=== PATIENT | female | born 1935 | race Caucasian/White ===

== ENCOUNTER 2018-07-07 12:24 | Emergency (ER) | payer BC ==
[~2018-07-07] VITALS: Ht 160 cm; Wt 100.2 kg
--- NOTE | 2018-07-07 13:03 | NUR ---
Pt assessed, reports she was sent here from [place] for low H/H. Pt denies weakness or lightheadedness. Pt reports "dark stools". Pt reports hx transfusions in the past but unsure of why. Pt reports SOB with exertion, hx COPD. Pt reports "burning in my chest when I am walking." Pt also reports hx UTI with abx use over past month, no longer on abx but still has frequency. NAD at this time. Pt steady, ambulatory. Will cont to monitor
[2018-07-07] MEDS ORDERED: GLYB-135 PO (13:10)
[2018-07-07] MEDS ORDERED: LISI1TAB7 PO (13:11)
[2018-07-07] MEDS ORDERED: METO-95 PO (13:12)
[2018-07-07] MEDS ORDERED: NIFE30TA15 PO (13:12)
[2018-07-07] MEDS ORDERED: TIOT18CA INH (13:13)
[2018-07-07] MEDS ORDERED: SIMV40TA3 PO (13:13)
[2018-07-07] MEDS ORDERED: SODIUM CHLORIDE FLUSH 10ML SYR IVF ONE (13:30)
[2018-07-07 13:41] LABS: MEAN CORPUSCULAR HEMOGLOBIN 18.9 pg (27.0-34.8); MEAN CORPUSCULAR VOLUME 63.2 fL (80-100); MEAN PLATELET VOLUME 7.5 fL (7.4-10.4); PLATELET COUNT 263 x10^3/uL (130-400); RED BLOOD COUNT 3.58 x10^6/uL (3.82-5.3); RED CELL DISTRIBUTION WIDTH 18.5 % (9.6-15.2)
[2018-07-07 13:44] LABS: MEAN CORPUSCULAR HGB CONC 29.8 g/dL (32.4-35.8)
[2018-07-07 13:50] LABS: ANION GAP 7 mmol/L (5-15); CALCIUM 8.8 mg/dL (8.5-10.1); CHLORIDE 108 mmol/L (98-107); CREATININE 1.03 mg/dL (0.55-1.02); INTERNATIONAL NORMALIZED RATIO 1.1 (0.93-1.1); PROTHROMBIN TIME 11.5 Seconds (9.6-11.5)
[2018-07-07 13:51] LABS: ALBUMIN 3.7 g/dL (3.4-5.0)
[2018-07-07 13:59] LABS: BASOPHILS # (AUTO) 0.03 x10^3/uL (0-0.1); BASOPHILS % (AUTO) 0 % (0-1); EOSINOPHILS # (AUTO) 0.08 x10^3/uL (0-0.4); EOSINOPHILS % (AUTO) 1 % (1-7); LYMPHOCYTES # (AUTO) 1.86 x10^3/uL (1-3.4); LYMPHOCYTES % (AUTO) 24 % (22-44); MD SCAN; MONOCYTES # (AUTO) 0.58 x10^3/uL (0.2-0.8); MONOCYTES % (AUTO) 7 % (2-9); NEUTROPHILS % (AUTO) 67 % (42-75)
[2018-07-07 13:59] LABS: MICROSCOPIC AUTO
--- NOTE | 2018-07-07 14:01 | NUR ---
Report from Dalton ENGLE. Rounded on pt. No needs at this time. Will cont to monitor
[2018-07-07 14:05] LABS: CULTURE INDICATED? YES
[2018-07-07 15:19] VITALS: BP 126/50
--- NOTE | 2018-07-07 15:23 | NUR ---
Blood transfusion started, consent signed and on chart. RN at BS for first 15 minutes
[2018-07-07 15:34] VITALS: BP 135/54
--- NOTE | 2018-07-07 15:34 | NUR ---
Pt tolerating transfusion well. Will cont to monitor
[2018-07-07 16:00] VITALS: BP 146/59
[2018-07-07 16:29] VITALS: BP 130/53
[2018-07-07 17:02] VITALS: BP 127/62
== END 2018-07-07 17:16 | disposition home or self-care (01) ==
LOC: ED 14:39
DX: D63.8 Anemia in other chronic diseases classified elsewhere (principal); R06.00 Dyspnea, unspecified; R42 Dizziness and giddiness
CPT/HCPCS: 36415; 36430; 80048; 81001; 82040; 85025; 85610; 85730; 86850; 86900; 86923; 87086; 99285; P9016

== ENCOUNTER 2018-10-06 10:21 | Emergency (ER) | payer BC ==
[~2018-10-06] VITALS: Ht 160 cm; Wt 101.0 kg
[2018-10-06] VITALS (8 sets, daily range): BP systolic 129–157; BP diastolic 39–67
[~2018-10-06 10:21] MED LIST: GLYB-135 PO; LISI1TAB20 PO; METO-95 PO; NIFE30TA15 PO; SIMV40TA3 PO; TIOT18CA INH
--- NOTE | 2018-10-06 11:03 | NUR ---
PT AMBULATORY TO ROOM 4 W/ C/O SOB AND STATES SHE HAS BEEN FEELING MORE TIRED THAN NORMAL. STATES SHE GETS THESE SX WHENEVER HER HGB DROPPED. HAD POC HGB DRAW THIS AM AND WAS SHOWN TO BE 7.0. STATES SHE USUALLY GETS 2 UNITS OF PRBC Q6 MONTHS BUT 3 MONTHS AGO ONLY RECEIVED 1 UNIT 3 MONTHS AGO. PT RESTING ON GURNEY. NADN. MONITORS APPLIED. EDPA BIRDIE AT BEDSIDE.PT AOX4. REFUSING INVASIVE PROCEDURES.
--- NOTE | 2018-10-06 11:47 | NUR ---
PT RESTING ON GURNEY. NADN. KANG.
[2018-10-06 11:55] LABS: ALBUMIN 3.7 g/dL (3.4-5.0); ANION GAP 8 mmol/L (5-15); CALCIUM 8.9 mg/dL (8.5-10.1); CHLORIDE 107 mmol/L (98-107)
[2018-10-06 12:00] LABS: ALANINE AMINOTRANSFERASE 32 U/L (12-78); ALKALINE PHOSPHATASE 266 U/L (45-117); BILIRUBIN,TOTAL 0.4 mg/dL (0.2-1.0); CREATININE 1.16 mg/dL (0.55-1.02); TOTAL PROTEIN 7.9 g/dL (6.4-8.2); TROPONIN I < 0.015 ng/mL (0.000-0.045)
[2018-10-06 12:25] LABS: MD YES
[2018-10-06 12:43] LABS: MEAN CORPUSCULAR HEMOGLOBIN 19.7 pg (27.0-34.8); MEAN CORPUSCULAR VOLUME 66.2 fL (80-100); MEAN PLATELET VOLUME 8.2 fL (7.4-10.4); PLATELET COUNT 301 x10^3/uL (130-400); RED BLOOD COUNT 3.77 x10^6/uL (3.82-5.3); RED CELL DISTRIBUTION WIDTH 19.5 % (9.6-15.2)
--- NOTE | 2018-10-06 12:47 | NUR ---
REPORT TO ONIEL MELÉNDEZ.
[2018-10-06 12:54] LABS: MEAN CORPUSCULAR HGB CONC 29.8 g/dL (32.4-35.8)
[2018-10-06 12:57] LABS: BASOS#(MANUAL) 0.08 x10^3/uL (0-0.1); BASOS% (MANUAL) 1 % (0-1); EOS#(MANUAL) 0.16 x10^3/uL (0.0-0.4); EOS% (MANUAL) 2 % (1-7); LYMPH#(MANUAL) 1.62 x10^3/uL (1-3.4); LYMPHS% (MANUAL) 20 % (22-44); MONOS#(MANUAL) 0.57 x10^3/uL (0.3-2.7); MONOS% (MANUAL) 7 % (2-9); SEG#(MANUAL) 5.67 x10^3/uL (1.8-6.8); SEGS% (MANUAL) 70 % (42-75)
[2018-10-06 12:58] LABS: <PLATELET ESTIMATE> ADEQUATE; <PLT MORPHOLOGY> NORMAL PLT MORPH; ANISOCYTOSIS 1+; HYPOCHROMIA 1+; MICROCYTOSIS 2+; OVALOCYTES 1+
--- NOTE | 2018-10-06 14:45 | NUR ---
FIRST UNIT OF PRBCs STARTED. EDUCATED PATIENT ON S/S OF TRANSFUSION REACTION AND TO CALL IF SHE HAS ANY OF THEM. PT AGREES. WILL CONTINUE TO MONITOR.
--- NOTE | 2018-10-06 15:10 | NUR ---
PATIENT TOLERATING BLOOD TRANSFUSION WELL. VS UPDATED AND WNL. DENIES S/S OF A REACTION.
--- NOTE | 2018-10-06 15:42 | NUR ---
PT CONTINUES TO TOLERATE TRANSFUSION WELL. INCREASING RATE.
--- NOTE | 2018-10-06 16:48 | NUR ---
SECOND UNIT OF BLOOD STARTED. CORY MORFIN AT BEDSIDE. ADA DIET TRAY ORDERED.
--- NOTE | 2018-10-06 17:09 | NUR ---
PT TOLERATING SECOND UNIT OF BLOOD WELL. INCREASING INFUSION RATE. SON AT BEDSIDE.
--- NOTE | 2018-10-06 17:46 | NUR ---
SECOND UNIT OF PRBCs COMPLETE. PT TOLERATED WELL. VS UPDATED AND WNL. NO S/S TRANSFUSION REACTION. DINNER TRAY SERVED TO PATIENT.
--- NOTE | 2018-10-06 18:33 | NUR ---
UA COLLETED AND SENT TO LAB.
[2018-10-06 18:51] LABS: MICROSCOPIC AUTO
--- NOTE | 2018-10-06 18:52 | NUR ---
RECEIVED REPORT FROM ONIEL MELÉNDEZ AND ASSUMED PT CARE.
[2018-10-06 18:55] LABS: CULTURE INDICATED? YES
--- NOTE | 2018-10-06 19:06 | NUR ---
SBAR BEDSIDE HAND-OFF REPORT GIVEN TO ONIEL REARDON.
[2018-10-06] MEDS ORDERED: FOSFOMYCIN 3 GM PACKET PO ONE (19:30)
[2018-10-06] MEDS ORDERED: FOSFOMYCIN 3 GM PACKET ONE (19:38)
== END 2018-10-06 19:53 | disposition home or self-care (01) ==
LOC: ED 13:27
DX: D50.0 Iron deficiency anemia secondary to blood loss (chronic) (principal); N30.00 Acute cystitis without hematuria; E11.65 Type 2 diabetes mellitus with hyperglycemia
CPT/HCPCS: 36415; 36430; 71045; 80053; 81001; 83880; 84484; 85025; 86850; 86900; 86923; 87077; 87086; 87186; 93005; 99285; P9016

== ENCOUNTER 2019-02-03 17:37 | Emergency (ER) | payer MEDICARE, BC ==
[~2019-02-03] VITALS: Ht 160 cm; Wt 105.2 kg
[~2019-02-03 17:37] MED LIST changes: +ALBU90AE INH; +ALBUTEROL INHALER; +ASPI81TA45 PO; +CEPH-368 PO; +FERR324T5 PO; -GLYB-135 PO; +GLYB1TAB16 PO; +HYDR-3237 PO; +METFORMIN; +NIFE30TA13 PO; +OXYB10TA2 PO
--- NOTE | 2019-02-03 17:53 | NUR ---
THIS IS A 83 YO F BIB [facility] FROM [facility]. SHE WAS DC TODAY FROM THIS FACILITY AFTER A LEFT HIP FX BUT FEELS SHE IS NOT READY FOR REHAB. SHE STATES "I FEEL SAFE HERE". RESPIRATIONS ARE EVEN AND UNLABORED. PATIENT IS IN NO ACUTE DISTRESS. VS STABLE. CALL LIGHT IN REACH. WILL CONTINUE TO MONITOR.
--- NOTE | 2019-02-03 18:36 | NUR ---
SOCIAL WORK IN ROOM.
--- NOTE | 2019-02-03 18:55 | NUR ---
REPORT FROM STEPHANIE ENGLE
--- NOTE | 2019-02-03 19:31 | NUR ---
SOCIAL WORK AT BEDSIDE
[2019-02-03 19:32] VITALS: BP 130/52
--- NOTE | 2019-02-03 20:37 | NUR ---
REPORT CALLED TO [facility]EL[facility] AT [facility]
== END 2019-02-03 20:52 | disposition short-term general hospital (02) ==
LOC: ED 19:26
DX: F41.1 Generalized anxiety disorder (principal); I10 Essential (primary) hypertension; E11.65 Type 2 diabetes mellitus with hyperglycemia; J44.9 Chronic obstructive pulmonary disease, unspecified; Z87.891 Personal history of nicotine dependence
CPT/HCPCS: 99285

== ENCOUNTER 2019-02-06 12:02 | Inpatient (IN) | payer MEDICARE, BC ==
[~2019-02-06] VITALS: Ht 160 cm; Wt 109.2 kg
--- NOTE | 2019-02-06 12:20 | NUR ---
SUNG YOU FROM [facility] FOR N/V. PT AT FACILITY TO REHAB FROM LT FEMUR FX. NO VOMITING NOTED IN ED. PT SPEAKING IN FULL SENTENCES, PLEASANT WITH STAFF. TALKING ABOUT PERSONAL HOME LIFE WITH SON. RESPIRATIONS EVEN AND UNLABORED ON RA. AWAITING ERMD DANIS.
[2019-02-06] MEDS ORDERED: ACET325T14 PO (12:33)
[2019-02-06] MEDS ORDERED: TUBE5VIA ID (12:33)
[2019-02-06] MEDS ORDERED: IPRA3AMP30 INH (12:33)
--- NOTE | 2019-02-06 12:33 | NUR ---
MED REC COMPLETED. PT ON BEDPAN.
[2019-02-06] MEDS ORDERED: SODIUM CHLORIDE 0.9% 1,000 ML IV ONE (12:46)
[2019-02-06] MEDS ORDERED: SODIUM CHLORIDE FLUSH 10ML SYR IVF ONE (13:00)
[2019-02-06] MEDS ORDERED: ONDANSETRON 2MG/ML, 2ML IVPush ONE (13:00)
[2019-02-06] MEDS ORDERED: ONDANSETRON 2MG/ML, 2ML ONE (13:01)
[2019-02-06 13:15] LABS: MEAN CORPUSCULAR HEMOGLOBIN 23.7 pg (27.0-34.8); MEAN CORPUSCULAR HGB CONC 31.1 g/dL (32.4-35.8); MEAN CORPUSCULAR VOLUME 76.3 fL (80-100); MEAN PLATELET VOLUME 7.6 fL (7.4-10.4); PLATELET COUNT 279 x10^3/uL (130-400); RED BLOOD COUNT 4.14 x10^6/uL (3.82-5.3); RED CELL DISTRIBUTION WIDTH 26.6 % (9.6-15.2)
[2019-02-06 13:19] LABS: ALANINE AMINOTRANSFERASE 21 U/L (12-78); ALBUMIN 2.9 g/dL (3.4-5.0); ANION GAP 10 mmol/L (5-15); CALCIUM 8.8 mg/dL (8.5-10.1); CHLORIDE 105 mmol/L (98-107)
[2019-02-06 13:24] LABS: ALKALINE PHOSPHATASE 363 U/L (45-117); BILIRUBIN,TOTAL 1.1 mg/dL (0.2-1.0); CREATININE 0.91 mg/dL (0.55-1.02); TOTAL PROTEIN 7.5 g/dL (6.4-8.2); TROPONIN I < 0.015 ng/mL (0.000-0.045)
[2019-02-06 13:38] LABS: BASOPHILS # (AUTO) 0.02 x10^3/uL (0-0.1); BASOPHILS % (AUTO) 0 % (0-1); EOSINOPHILS # (AUTO) 0.05 x10^3/uL (0-0.4); EOSINOPHILS % (AUTO) 1 % (1-7); LYMPHOCYTES # (AUTO) 0.74 x10^3/uL (1-3.4); LYMPHOCYTES % (AUTO) 8 % (22-44); MD SCAN; MONOCYTES # (AUTO) 0.45 x10^3/uL (0.2-0.8); MONOCYTES % (AUTO) 5 % (2-9); NEUTROPHILS # (AUTO) 7.92 x10^3/uL (1.8-6.8); NEUTROPHILS % (AUTO) 86 % (42-75)
--- NOTE | 2019-02-06 13:57 | NUR ---
REPORT FROM ONIEL WEBB. PT RESTING IN ROOM. VSS. NO NEEDS EXPRESSED. IVF INFUSING. PT AWARE OF UA NEED.
[2019-02-06] MEDS ORDERED: OMNIPAQUE 350 MG/ML, 100ML BOTTLE ONE (14:24)
[2019-02-06 14:42] LABS: CULTURE INDICATED? YES; MICROSCOPIC INDICATED
--- NOTE | 2019-02-06 14:58 | NUR ---
PT RESTING IN ROOM WTIH EYES CLOSED. VSS. NO NEEDS EXPRESSED. ALL RESULTS ABCK AT THIS TIME. CHART UP FOR RECHECK.
[2019-02-06] MEDS ORDERED: PANTOPRAZOLE 40 MG IV IVPush ONE (15:30)
[2019-02-06] MEDS ORDERED: PANTOPRAZOLE 40 MG IV ONE (15:39)
--- NOTE | 2019-02-06 15:44 | NUR ---
PT RESTING IN ROOM. VSS. PT MEDICATED PER MAR. NO NEEDS EXPRESSED. CALL LIGHT WITHIN REACH. PLAN TO ADMIT. AWAITING ROOM ASSINGMENT.
[2019-02-06] MEDS ORDERED: SODIUM CHLORIDE FLUSH 10ML SYR IVF PRN (16:00)
[2019-02-06] MEDS: PANTOPRAZOLE 80 MG in SODIUM CHLORIDE 0.9% 100 ML IV SCH (16:20)
--- NOTE | 2019-02-06 16:20 | NUR ---
PT MEDICATED PER MAR. VSS. NO NEEDS EXPRESSED. CALL LIGHT WITHIN REACH. AWAITING ROOM ASSIGNMENT.
[2019-02-06] MEDS ORDERED: PROMETHAZINE 25 MG/ML, 1ML IM PRN (16:30)
[2019-02-06] MEDS ORDERED: ONDANSETRON 2MG/ML, 2ML IVPush PRN (16:30)
[2019-02-06] MEDS ORDERED: ACETAMINOPHEN 325 MG TABLET PO PRN (16:30)
[2019-02-06] MEDS ORDERED: ONDANSETRON ODT 4 MG PO PRN (16:30)
[2019-02-06] MEDS ORDERED: BACLOFEN 10 MG TABLET PO PRN (16:30)
[2019-02-06] MEDS ORDERED: hydrALAzine 20 MG/ML, 1ML IVPush PRN (16:30)
--- NOTE | 2019-02-06 16:50 | NUR ---
BREAK NOTE FOR RN: PT SITTING RECLINED IN BED, NAD NOTED AT THIS TIME. RESPIRATIONS EVEN AND UNLABORED ON RA. TALKING WITH VISITOR AT BEDSIDE. SIDE RAILS UP, CALL LIGHT IN REACH.
[2019-02-06] MEDS ORDERED: DEXTROSE 50%, 50ML SYRINGE IVPush PRN (17:30)
[2019-02-06] MEDS ORDERED: GLUCAGON 1 MG IM PRN (17:30)
[2019-02-06] MEDS ORDERED: DEXTROSE 4 GM TAB.CHEW PO PRN (17:30)
--- NOTE | 2019-02-06 18:14 | NUR ---
PT RESTING IN ROOM. VSS. NO NEEDS EXPRESSED AT THIS TIME. CALL LIGHT WITHIN REACH. PT REFUSING NG TUBE AT THIS TIME. REPORT TO ONIEL GRIDER. PT READY FOT TRANSPORT.
[2019-02-06 19:47] VITALS: BP 168/76
[2019-02-06] MEDS: INSULIN LISPRO 100 UNITS/ML, PEN SQ-INSULIN SCH (19:53)
[2019-02-06] MEDS: SIMVASTATIN 40 MG TABLET PO SCH (21:00)
[2019-02-06] MEDS: ASPIRIN 81 MG TABLET EC PO SCH (21:00)
[2019-02-06] MEDS: SODIUM CHLORIDE FLUSH 10ML SYR IVF SCH (21:38)
[2019-02-06] MEDS: morphine SULFATE 10 MG/ML, 1ML IVPush PRN (21:39)
[2019-02-06] MEDS: NS + 20MEQ KCL 1,000 ML IV SCH (23:29)
[2019-02-07] MEDS: ALBUTEROL/IPRATROPIUM 2.5MG/0.5MG, 3 ML NEB SCH ×5 (00:51→20:54)
[2019-02-07 01:01] VITALS: BP 155/75
[2019-02-07] MEDS: PANTOPRAZOLE 80 MG in SODIUM CHLORIDE 0.9% 100 ML IV SCH ×2 (01:54→13:31)
[2019-02-07 05:15] LABS: MEAN CORPUSCULAR HEMOGLOBIN 24.1 pg (27.0-34.8); MEAN CORPUSCULAR HGB CONC 31.7 g/dL (32.4-35.8); MEAN CORPUSCULAR VOLUME 76.3 fL (80-100); PLATELET COUNT 240 x10^3/uL (130-400); RED CELL DISTRIBUTION WIDTH 27.5 % (9.6-15.2)
[2019-02-07 05:19] LABS: ALBUMIN 2.7 g/dL (3.4-5.0); ANION GAP 7 mmol/L (5-15); CALCIUM 8.8 mg/dL (8.5-10.1); CHLORIDE 110 mmol/L (98-107)
[2019-02-07 05:21] LABS: ALANINE AMINOTRANSFERASE 19 U/L (12-78); ALKALINE PHOSPHATASE 308 U/L (45-117); BILIRUBIN,TOTAL 0.8 mg/dL (0.2-1.0); CREATININE 0.83 mg/dL (0.55-1.02); TOTAL PROTEIN 6.9 g/dL (6.4-8.2)
[2019-02-07 05:48] LABS: BASOPHILS # (AUTO) 0.03 x10^3/uL (0-0.1); BASOPHILS % (AUTO) 0 % (0-1); EOSINOPHILS # (AUTO) 0.16 x10^3/uL (0-0.4); EOSINOPHILS % (AUTO) 2 % (1-7); LYMPHOCYTES # (AUTO) 0.96 x10^3/uL (1-3.4); LYMPHOCYTES % (AUTO) 14 % (22-44); MD SCAN; MONOCYTES # (AUTO) 0.48 x10^3/uL (0.2-0.8); MONOCYTES % (AUTO) 7 % (2-9); NEUTROPHILS # (AUTO) 5.19 x10^3/uL (1.8-6.8); NEUTROPHILS % (AUTO) 76 % (42-75)
[2019-02-07 06:35] VITALS: BP 159/72
[2019-02-07] MEDS: INSULIN LISPRO 100 UNITS/ML, PEN SQ-INSULIN SCH ×4 (07:00→20:35)
[2019-02-07] MEDS: SODIUM CHLORIDE FLUSH 10ML SYR IVF SCH ×2 (09:00→20:44)
[2019-02-07] MEDS: NS + 20MEQ KCL 1,000 ML IV SCH ×2 (11:04→20:44)
[2019-02-07] MEDS: morphine SULFATE 10 MG/ML, 1ML IVPush PRN (11:25)
[2019-02-07] MEDS: AMLODIPINE 5 MG TABLET PO SCH ×2 (13:32→20:43)
[2019-02-07] MEDS: ASPIRIN 81 MG TABLET EC PO SCH ×2 (13:32→20:45)
[2019-02-07] MEDS: METOPROLOL SUCCINATE 100 MG TAB.ER.24H PO SCH (13:32)
[2019-02-07] MEDS: niFEDipine ER 30 MG TABLET.ER PO SCH (13:32)
[2019-02-07 14:05] VITALS: BP 129/66
[2019-02-07 19:12] VITALS: BP 121/71
[2019-02-07] MEDS: SIMVASTATIN 40 MG TABLET PO SCH (20:43)
[2019-02-07] MEDS: HYDROcodone/APAP 5/325 TABLET PO PRN (21:17)
[2019-02-08] MEDS: PANTOPRAZOLE 80 MG in SODIUM CHLORIDE 0.9% 100 ML IV SCH (01:04)
[2019-02-08 01:06] VITALS: BP 122/55
[2019-02-08] MEDS: ALBUTEROL/IPRATROPIUM 2.5MG/0.5MG, 3 ML NEB SCH ×4 (05:47→20:00)
[2019-02-08 06:26] LABS: MEAN CORPUSCULAR HEMOGLOBIN 24.6 pg (27.0-34.8); MEAN CORPUSCULAR HGB CONC 31.7 g/dL (32.4-35.8); MEAN CORPUSCULAR VOLUME 77.6 fL (80-100); PLATELET COUNT 224 x10^3/uL (130-400); RED BLOOD COUNT 3.63 x10^6/uL (3.82-5.3); RED CELL DISTRIBUTION WIDTH 27.9 % (9.6-15.2)
[2019-02-08 06:28] LABS: ALBUMIN 2.5 g/dL (3.4-5.0); ANION GAP 5 mmol/L (5-15); CALCIUM 8.1 mg/dL (8.5-10.1); CHLORIDE 111 mmol/L (98-107)
[2019-02-08 06:32] LABS: ALANINE AMINOTRANSFERASE 17 U/L (12-78); ALKALINE PHOSPHATASE 277 U/L (45-117); BILIRUBIN,TOTAL 0.8 mg/dL (0.2-1.0); TOTAL PROTEIN 6.5 g/dL (6.4-8.2)
[2019-02-08 06:36] VITALS: BP 118/67
[2019-02-08] MEDS: INSULIN LISPRO 100 UNITS/ML, PEN SQ-INSULIN SCH ×4 (07:00→20:06)
[2019-02-08 07:05] LABS: BASOPHILS # (AUTO) 0.03 x10^3/uL (0-0.1); BASOPHILS % (AUTO) 1 % (0-1); EOSINOPHILS # (AUTO) 0.19 x10^3/uL (0-0.4); EOSINOPHILS % (AUTO) 3 % (1-7); LYMPHOCYTES # (AUTO) 0.95 x10^3/uL (1-3.4); LYMPHOCYTES % (AUTO) 14 % (22-44); MD SCAN; MONOCYTES # (AUTO) 0.37 x10^3/uL (0.2-0.8); MONOCYTES % (AUTO) 5 % (2-9); NEUTROPHILS # (AUTO) 5.43 x10^3/uL (1.8-6.8); NEUTROPHILS % (AUTO) 78 % (42-75)
[2019-02-08] MEDS: METOPROLOL SUCCINATE 100 MG TAB.ER.24H PO SCH (07:59)
[2019-02-08] MEDS: niFEDipine ER 30 MG TABLET.ER PO SCH (07:59)
[2019-02-08] MEDS: AMLODIPINE 5 MG TABLET PO SCH ×2 (07:59→20:17)
[2019-02-08] MEDS: GUAIFENESIN 100 MG/5 ML, 10ML UDC PO SCH ×2 (08:00→20:16)
[2019-02-08] MEDS: ASPIRIN 81 MG TABLET EC PO SCH (08:00)
[2019-02-08] MEDS: SODIUM CHLORIDE FLUSH 10ML SYR IVF SCH ×2 (08:02→20:17)
[2019-02-08] MEDS ORDERED: GUAIFENESIN 200 MG TABLET PO SCH (09:00)
[2019-02-08] MEDS: NS + 20MEQ KCL 1,000 ML IV SCH (09:20)
[2019-02-08 14:02] VITALS: BP 118/62
[2019-02-08] MEDS: PANTOPRAZOLE 20MG TABLET PO SCH (16:49)
[2019-02-08 18:46] VITALS: BP 117/71
[2019-02-08] MEDS: SIMVASTATIN 40 MG TABLET PO SCH (20:17)
[2019-02-08] MEDS: HYDROcodone/APAP 5/325 TABLET PO PRN (20:17)
[2019-02-09 00:58] VITALS: BP 145/72
[2019-02-09] MEDS: PANTOPRAZOLE 20MG TABLET PO SCH (04:36)
[2019-02-09 05:44] LABS: CALCIUM 8.8 mg/dL (8.5-10.1); CHLORIDE 109 mmol/L (98-107); MEAN CORPUSCULAR HEMOGLOBIN 24.4 pg (27.0-34.8); MEAN CORPUSCULAR HGB CONC 31.3 g/dL (32.4-35.8); MEAN PLATELET VOLUME 7.9 fL (7.4-10.4); PLATELET COUNT 291 x10^3/uL (130-400); RED BLOOD COUNT 4.15 x10^6/uL (3.82-5.3); RED CELL DISTRIBUTION WIDTH 28.3 % (9.6-15.2)
[2019-02-09 05:50] LABS: ALANINE AMINOTRANSFERASE 21 U/L (12-78); ALBUMIN 2.9 g/dL (3.4-5.0); ALKALINE PHOSPHATASE 299 U/L (45-117); ANION GAP 6 mmol/L (5-15); BILIRUBIN,TOTAL 0.7 mg/dL (0.2-1.0); CREATININE 0.85 mg/dL (0.55-1.02); TOTAL PROTEIN 7.3 g/dL (6.4-8.2)
[2019-02-09 06:03] LABS: BASOPHILS % (AUTO) 0 % (0-1); EOSINOPHILS % (AUTO) 0 % (1-7); LYMPHOCYTES # (AUTO) 0.68 x10^3/uL (1-3.4); LYMPHOCYTES % (AUTO) 9 % (22-44); MD SCAN; MONOCYTES # (AUTO) 0.18 x10^3/uL (0.2-0.8); MONOCYTES % (AUTO) 3 % (2-9); NEUTROPHILS # (AUTO) 6.48 x10^3/uL (1.8-6.8); NEUTROPHILS % (AUTO) 88 % (42-75)
[2019-02-09] MEDS: INSULIN LISPRO 100 UNITS/ML, PEN SQ-INSULIN SCH ×2 (07:00→11:15)
[2019-02-09] MEDS: ALBUTEROL/IPRATROPIUM 2.5MG/0.5MG, 3 ML NEB SCH (07:00)
[2019-02-09] MEDS: niFEDipine ER 30 MG TABLET.ER PO SCH (08:08)
[2019-02-09] MEDS: GUAIFENESIN 100 MG/5 ML, 10ML UDC PO SCH (08:08)
[2019-02-09] MEDS: AMLODIPINE 5 MG TABLET PO SCH (08:08)
[2019-02-09] MEDS: METOPROLOL SUCCINATE 100 MG TAB.ER.24H PO SCH (08:09)
[2019-02-09] MEDS: SODIUM CHLORIDE FLUSH 10ML SYR IVF SCH (08:09)
[2019-02-09 09:00] VITALS: BP 125/66
[2019-02-09] MEDS ORDERED: PANT20TA3 PO (10:22)
[2019-02-09] MEDS ORDERED: PRED20TA PO (10:22)
[2019-02-09 14:05] VITALS: BP 138/74
== END 2019-02-09 15:58 | DRG 378 ==
LOC: ED 15:34 → EDIP 15:35 → ED 16:52 → 3N 17:16 → 4WST 19:07
PROVIDERS: ADMIT Internal Medicine; ATTEND Internal Medicine
DX: K29.81 Duodenitis with bleeding (principal); J44.1 Chronic obstructive pulmonary disease with (acute) exacerbation; J96.10 Chronic respiratory failure, unspecified whether with hypoxia or hypercapnia; E78.5 Hyperlipidemia, unspecified; E11.9 Type 2 diabetes mellitus without complications; D64.9 Anemia, unspecified; I10 Essential (primary) hypertension; I25.10 Atherosclerotic heart disease of native coronary artery without angina pectoris; I70.0 Atherosclerosis of aorta; Z66 Do not resuscitate; N28.89 Other specified disorders of kidney and ureter; N28.1 Cyst of kidney, acquired; M85.80 Other specified disorders of bone density and structure, unspecified site; K74.60 Unspecified cirrhosis of liver; Z96.642 Presence of left artificial hip joint; Z90.710 Acquired absence of both cervix and uterus; Z90.49 Acquired absence of other specified parts of digestive tract; Z87.891 Personal history of nicotine dependence; Z85.41 Personal history of malignant neoplasm of cervix uteri; Z80.0 Family history of malignant neoplasm of digestive organs; R00.0 Tachycardia, unspecified
CPT/HCPCS: 36415; 71045; 74021; 74177; 80053; 81001; 82962; 83690; 83735; 83880; 84100; 84145; 84484; 85014; 85018; 85025; 87086; 87106; 93005; 94640; 96374; G0378; J2405; J3480; J7620; Q9967; C9113; J1815; J2270; J7030; J7512